=== PATIENT | female | born 1955 | race Caucasian/White ===

== ENCOUNTER → 2016-08-30 | Emergency (ER) | payer OTHER ==
[~2016-08-30] MED LIST: HYDROmorphone HCL CARPU-JECT 1 MG/1 ML DISP.SYRIN ONE; HYDROmorphone HCL CARPU-JECT 2 MG/1 ML DISP.SYRIN IVPB ONE
[2016-08-30 16:20] VITALS: BP 124/77; PULSE 84; TEMP 98.1; BMI 22.4
--- NOTE | 2016-08-30 17:16 | PDOC ---
History of Present Illness - General History Source: Patient - History of Present Illness Occurred: reports: other Severity: reports: severe Pain Location: reports: back <Maximo Louise - Last Filed: 08/30/16 18:55> <Lisa Newman - Last Filed: 08/30/16 20:44> - General Chief Complaint: Pain, Acute Stated Complaint: LOWER BACK PAIN Time Seen by Provider: 08/30/16 16:37 Past History - Past Medical History Asthma: Yes Cardiac Disorders: No COPD: Yes Diabetes: No GI Disorders: No Disorders: No HTN: Yes Kidney Stones: No Suicide Attempt (Hx): No Seizures: No Thyroid Disease: Yes (hypothyroidism) - Surgical History Abdominal Surgery: No Appendectomy: No Cardiac Surgery: No Cholecystectomy: Yes Lung Surgery: No Neurologic Surgery: No Orthopedic Surgery: No - Immunization History Td Vaccination: Yes TDAP Vaccination: Yes Immunization Up to Date: Yes - Psycho/Social/Smoking Cessation Hx Anxiety: Yes Suicidal Ideation: No Smoking Status: Yes Smoking History: Current every day smoker Years of Tobacco Use: 0 Have you smoked in the past 12 months: Yes Number of Cigarettes Smoked Daily: 5 Cigars Per Day: 0 Information on smoking cessation initiated: No 'Breaking Loose' booklet given: 06/19/12 Hx Alcohol Use: No Drug/Substance Use Hx: No Substance Use Type: Prescribed, Tranquilizers Hx Substance Use Treatment: Yes <Maximo Louise - Last Filed: 08/30/16 18:55> <Lisa Newman - Last Filed: 08/30/16 20:44> - Past Medical History Allergies/Adverse Reactions: Allergies Allergy/AdvReac Type Severity Reaction Status Date / Time ketorolac tromethamine Allergy Intermediate Hives Verified 08/30/16 16:21 [From Toradol] ketorolac Allergy Hives Verified 08/30/16 16:21 Opioids - Morphine Analogues Allergy ITCHING/ADRIANNA Verified 08/30/16 16:21 H ibuprofen [From Motrin] AdvReac Vomiting Verified 08/30/16 16:21 chocolate Allergy Mild Itching Uncoded 08/30/16 16:21 msg Allergy Mild Uncoded 08/30/16 16:21 peanuts Allergy Mild Itching Uncoded 08/30/16 16:21 Home Medications: Ambulatory Orders Omeprazole [Prilosec (RX)] 40 mg PO DAILY #0 capsule. 06/21/12 Levothyroxine [Synthroid] 50 mcg PO DAILY 08/08/12 Clonazepam [KlonoPIN] 0.5 mg PO QID 08/30/16 Famotidine [Pepcid] 20 mg PO DAILY 08/30/16 Metoprolol Tartrate [Lopressor -] 25 mg PO BID 08/30/16 Trauma Specific PMHX - Complaint Specific PMHX Arthritis: Yes (generalized) <Maximo Louise - Last Filed: 08/30/16 18:55> Review of Systems - Review of Systems Constitutional: No: Chills, Fever ABD/GI: No: Nausea, Vomiting : No: Dysuria, Flank Pain, Hematuria Musculoskeletal: Yes: Back Pain Neurological: No: Numbness, Tingling, Weakness <Maximo Louise - Last Filed: 08/30/16 18:55> *Physical Exam - Vital Signs Last Vital Signs Temp Pulse Resp BP Pulse Ox 98.1 F 84 18 124/77 100 08/30/16 16:17 08/30/16 16:17 08/30/16 16:17 08/30/16 16:17 08/30/16 16:17 - Physical Exam General Appearance: Yes: Appropriately Dressed. No: Apparent Distress HEENT: positive: Normal Voice Neck: positive: Supple Respiratory/Chest: negative: Respiratory Distress Gastrointestinal/Abdominal: positive: Soft. negative: Tender Musculoskeletal: negative: CVA Tenderness, Vertebral Tenderness Integumentary: positive: Dry, Warm Neurologic: positive: Fully Oriented, Alert, Normal Mood/Affect <Maximo Louise - Last Filed: 08/30/16 18:55> - Vital Signs Last Vital Signs Temp Pulse Resp BP Pulse Ox 98.1 F 84 18 124/77 100 08/30/16 16:17 08/30/16 16:17 08/30/16 16:17 08/30/16 16:17 08/30/16 16:17 <Lisa Newman - Last Filed: 08/30/16 20:44> ED Treatment Course - LABORATORY CBC & Chemistry Diagram: 08/30/16 17:40 08/30/16 17:40 - RADIOLOGY Radiology Studies Ordered: Category Date Time Status ABDOMEN & PELVIS CT W/O CONTR [CT] Stat CT Scan 08/30/16 17:07 Ordered <Maximo Louise - Last Filed: 08/30/16 18:55> - LABORATORY CBC & Chemistry Diagram: 08/30/16 17:40 08/30/16 17:40 - ADDITIONAL ORDERS Additional order review: Laboratory Results 08/30/16 02 17:40 17:15 Sodium 140 Potassium 4.3 Chloride 104 Carbon Dioxide 23 Anion Gap 13 BUN 22 H D Creatinine 1.4 H D Creat Clearance w eGFR 38.23 Random Glucose 87 Calcium 10.1 Total Bilirubin 0.3 D AST 18 ALT 18 Alkaline Phosphatase 87 Total Protein 9.0 H D Albumin 4.8 D Urine Color Colorless Urine Appearance Clear Urine pH 6.0 Ur Specific [place] 1.005 Urine Protein Negative Urine Glucose (UA) Negative Urine Ketones Negative Urine Blood 1+ H Urine Nitrite Negative Urine Bilirubin Negative Urine Urobilinogen Negative Ur Leukocyte Esterase Negative Urine RBC None Urine WBC <1 Ur Epithelial Cells Rare Urine Bacteria Rare 08/30/16 17:40 RBC 4.29 MCV 93.0 MCHC 33.0 RDW 14.2 MPV 9.1 D Neutrophils % 60.0 D Lymphocytes % 32.0 D Monocytes % 4.6 Eosinophils % 0.8 D Basophils % 2.6 H - Medications Given in the ED: ED Medications Discontinued Medications Generic Name Dose Route Start Last Admin Trade Name Tomasq PRN Reason Stop Dose Admin Hydromorphone HCl 1 mg 08/30/16 17:06 08/30/16 17:38 Dilaudid Injection - IVPB 08/30/16 17:07 1 mg ONCE ONE Administration <Lisa Newman - Last Filed: 08/30/16 20:44> Progress Note - Progress Note Progress Note: CT-Scan: Neg for abdominal pathology or renal calculi or Uropathy. Will d/c to home f/u with pain management. <Lisa Newman - Last Filed: 08/30/16 20:44> Medical Decision Making - Medical Decision Making 08/30/16 17:09 61-year-old female, chronic lower back pain status post accident several years ago, states she was told she had a "slipped disc and pinched nerve" on imaging, recurrent UTIs, currently on Bactrim after presenting to [facility] with dysuria 4 days ago, presenting with severe pain to lower back that started approximately 2 weeks ago. Patient states pain located to lower back b/ l, unable to describe pain but states it is constant and worse with certain movements. Denies any hematuria, nausea, vomiting, fever or chills at this time. States pain does not feel like her usual chronic back pain and has not had that pain "in a long time" as per patient. States she had US done in urology's office this afternoon showing possible stone on the right as per pt and referred to ED fot CT See exam Lower back pain H/o "slipped disc and pinched nerve" s/p injury remotely Currently on bactrim for uti Stable in ED No CVAT w/ benign abd ?stone on US in office today, doubt pyelo at this time given location of pain and no CVAT, pain possibly representing pt's chronic LBP -pain control -labs and CT r/o stone as requested by referring urologist 08/30/16 18:50 08/30/16 18:55 Pt requesting IV dilaudid only, citing multiple med allergies including to toradol, motrin, etc. Based on chart review, pt has a h/o polysubstance abuse, including narcotics and has had multiple encounters with pain management in the past for chronic abdominal pain and has also had encounters at [facility]. If CT unremarkable, will dc w/ non-narcotic pain meds and have pt f/u with pain management 08/30/16 18:58 <Maximo Louise - Last Filed: 08/30/16 18:55> *DC/Admit/Observation/Transfer <Maximo Louise - Last Filed: 08/30/16 18:55> - Discharge Dispostion Admit: No <Lisa Newman - Last Filed: 08/30/16 20:44> Diagnosis at time of Disposition: Low back pain Qualifiers: Chronicity: acute Back pain laterality: bilateral Sciatica presence: without sciatica Qualified Code(s): M54.5 - Low back pain - Discharge Dispostion Disposition: HOME Condition at time of disposition: Stable - Referrals Referrals: Aleks Fontana [Primary Care Provider] - - Patient Instructions Printed Discharge Instructions: DI for Low Back Pain Additional Instructions: FOLLOW UP WITH YOUR PRIMARY CARE PROVIDER/ ORTHOPEDIST/PAIN MANAGEMENT FOR FURTHER EVALUATION. CONTINUE TAKING YOUR CURRENT MEDICATIONS PRESCRIBED. GET LOTS OF REST. MOTRIN OR TYLENOL FOR PAIN NEEDED. WARM COMPRESS TO AFFECTED AREA. NO LIFTING OVER 10 LBS. CALL TO SCHEDULE YOUR APPOINTMENTS WITH YOUR DOCTORS.
[2016-08-30 17:33] LABS: URINE APPEARANCE CLEAR; URINE BILIRUBIN NEGATIVE (NEGATIVE); URINE COLOR COLORLESS; URINE GLUCOSE (UA) NEGATIVE (NEGATIVE); URINE KETONE NEGATIVE (NEGATIVE); URINE LEUK ESTERASE NEGATIVE (NEGATIVE); URINE NITRITE NEGATIVE (NEGATIVE); URINE PROTEIN NEGATIVE (NEGATIVE); URINE UROBILINOGEN NEGATIVE E.U./dl (0.2-1.0)
[2016-08-30 17:34] LABS: URINE BLOOD 1+ (NEGATIVE)
[2016-08-30 17:50] LABS: BASOPHIL 2.6 % (0-2.0); EOSINOPHIL 0.8 % (0-4.5); MCH 30.6 pg (25.7-33.7); MEAN PLT VOLUME 9.1 fl (7.5-11.1); PLATELET COUNT 227 K/MM3 (134-434); RDW 14.2 % (11.6-15.6)
[2016-08-30 18:21] LABS: URINE BACTERIA RARE /hpf (NONE SEEN); URINE WBC <1 /hpf (3-5)
[2016-08-30 18:39] LABS: ALBUMIN 4.8 g/dl (3.4-5.0); BILIRUBIN,TOTAL 0.3 mg/dL (0.2-1.0); CALCIUM 10.1 mg/dL (8.5-10.1); CREATININE 1.4 mg/dL (0.55-1.02)
== END | disposition home or self-care (01) ==
LOC: JER 15:47
PROC: 3E033NZ Introduction of Analgesics, Hypnotics, Sedatives into Peripheral Vein, Percutaneous Approach (ICD-10-PCS; principal; 2016-08-30)
DX: M54.5 Low back pain (principal); I10 Essential (primary) hypertension; E03.9 Hypothyroidism, unspecified; J45.909 Unspecified asthma, uncomplicated; J44.9 Chronic obstructive pulmonary disease, unspecified
CPT/HCPCS: 36415; 74176-TC; 80053; 81003; 81015; 85025; 87086; 96374; 99282-25